=== PATIENT | male | born 2000 | race Caucasian/White ===

== ENCOUNTER 2024-10-28 07:21 | Inpatient (IN) | payer BC, MEDICAID ==
[~2024-10-28] VITALS: Ht 185.4 cm; Wt 81.4 kg
[2024-10-29 19:10] VITALS: BP 85/53; PULSE 56; RESP 20; TEMP 97.6; O2SAT 99
[2024-10-29] MEDS: LORazepam 1 MG tablet PO ONE (23:41)
[2024-10-29] MEDS: haloperidol 5mg tablet PO ONE (23:42)
[2024-10-30 07:33] VITALS: PULSE 88; RESP 16; TEMP 97.8
[2024-10-30 08:00] VITALS: RESP 16
[2024-10-30] MEDS: OLANZAPINE 5 MG TABLET PO SCH ×2 (09:32→21:10)
[2024-10-30] MEDS: divalproex sodium 500mg tablet.DR PO SCH (09:32)
[2024-10-30] MEDS: LORazepam 1 MG tablet PO ONE (15:44)
[2024-10-30] MEDS: haloperidol 5mg tablet PO ONE (15:44)
[2024-10-30] MEDS: diphenhydrAMINE 25mg capsule PO ONE (15:44)
[2024-10-30 19:00] VITALS: RESP 13
[2024-10-30 20:00] VITALS: BP 121/61; PULSE 75; RESP 13; TEMP 98.2; O2SAT 96
[2024-10-30] MEDS ORDERED: Melatonin 3mg tablet PO SCH (21:00)
[2024-10-30] MEDS: divalproex 250mg tablet, delayed-release PO SCH (21:10)
[2024-10-30] MEDS: Melatonin 3mg tablet PO SCH (21:10)
[2024-10-31 07:00] VITALS: RESP 16; O2SAT 100
[2024-10-31 08:00] VITALS: BP 97/55; PULSE 74; RESP 16; TEMP 97.3; O2SAT 100
[2024-10-31] MEDS: paliperidone palmitate inj 234 MG/1.5 ML SYRINGE IM ONE (15:26)
[2024-10-31 18:43] VITALS: RESP 16; O2SAT 100
[2024-10-31 20:00] VITALS: BP 128/72; PULSE 76; RESP 14; TEMP 98.4; O2SAT 97
[2024-10-31] MEDS: PALIPERIDONE 3 MG TAB.ER.24 PO SCH (20:15)
[2024-10-31] MEDS ORDERED: magnesium hydroxide 30ml (MOM) UD suspension PO PRN (22:45)
[2024-10-31] MEDS ORDERED: mag hydrox/Alum hydrox/simeth 30ml oral suspension PO PRN (22:45)
[2024-10-31] MEDS ORDERED: acetaminophen 325mg tablet PO PRN ×2 (22:45)
[2024-10-31] MEDS ORDERED: loperamide 2mg capsule PO PRN (22:45)
[2024-10-31] MEDS: traZODone 50mg tablet PO ONE (23:08)
[2024-11-01] MEDS: traZODone 150mg tablet PO ONE (00:35)
[2024-11-01] MEDS: quetiapine 100mg tablet PO ONE ×2 (01:45→20:25)
[2024-11-01] MEDS: LORazepam 1 MG tablet PO ONE (03:02)
[2024-11-01 07:30] VITALS: BP 112/54; PULSE 71; RESP 14; TEMP 97.7; O2SAT 97
[2024-11-01 19:15] VITALS: RESP 16; O2SAT 99
[2024-11-01 19:29] VITALS: BP 140/65; PULSE 70; RESP 20; TEMP 98.8; O2SAT 99
[2024-11-01] MEDS: Melatonin 3mg tablet PO ONE (20:25)
[2024-11-02 07:00] VITALS: RESP 16
[2024-11-02 08:00] VITALS: RESP 16
[2024-11-02 19:04] VITALS: RESP 16; O2SAT 98
[2024-11-02 19:18] VITALS: RESP 16
[2024-11-02] MEDS: diphenhydrAMINE 25mg capsule PO ONE (19:41)
[2024-11-02] MEDS: haloperidol 5mg tablet PO ONE (19:42)
[2024-11-02] MEDS: LORazepam 1 MG tablet PO ONE (19:42)
[2024-11-03 07:30] VITALS: BP 109/57; PULSE 68; RESP 12; TEMP 97.5; O2SAT 100
[2024-11-03] MEDS: LORazepam 1 MG tablet PO STA (11:00)
[2024-11-03] MEDS: haloperidol 5mg tablet PO STA (11:01)
[2024-11-03] MEDS: diphenhydrAMINE 25mg capsule PO STA (11:01)
[2024-11-03 18:33] VITALS: RESP 14; O2SAT 100
[2024-11-03 20:37] VITALS: PULSE 80; RESP 17; TEMP 98.8; O2SAT 98
[2024-11-04 07:30] VITALS: BP 110/62; PULSE 82; RESP 13; TEMP 97.3; O2SAT 96
[2024-11-04 19:00] VITALS: RESP 18; O2SAT 96
[2024-11-04 20:00] VITALS: BP 133/80; PULSE 91; RESP 18; TEMP 98; O2SAT 96
[2024-11-05 07:00] VITALS: RESP 14; O2SAT 95
[2024-11-05 08:31] VITALS: BP 108/68; PULSE 86; RESP 14; TEMP 97.5; O2SAT 95
[2024-11-05] MEDS: paliperidone palmitate 156 mg/ml inj.**IM only IM ONE (14:09)
[2024-11-05 19:00] VITALS: RESP 18; O2SAT 100
[2024-11-05 20:00] VITALS: BP 138/87; PULSE 71; RESP 18; TEMP 97.3; O2SAT 98
[2024-11-06 08:00] VITALS: RESP 16; O2SAT 98
[2024-11-06 08:01] VITALS: BP 115/66; PULSE 86; RESP 16; TEMP 98.1; O2SAT 98
[2024-11-06 19:00] VITALS: RESP 18; O2SAT 98
[2024-11-06 20:00] VITALS: BP 140/71; PULSE 88; RESP 18; TEMP 97; O2SAT 98
[2024-11-07 07:22] VITALS: BP 105/63; PULSE 86; RESP 18; TEMP 97.9; O2SAT 98
[2024-11-07 08:47] VITALS: RESP 18; O2SAT 98
[2024-11-07] MEDS ORDERED: paliperidone palmitate 156 mg/ml inj.**IM only IM ONE (14:00)
[2024-11-07 20:00] VITALS: BP 125/63; PULSE 92; RESP 16; TEMP 97.8; O2SAT 96
[2024-11-08 07:30] VITALS: BP 114/62; PULSE 98; RESP 16; TEMP 96.4; O2SAT 96; O2SAT 99
[2024-11-08 10:35] VITALS: BP 114/62; PULSE 98; RESP 16; TEMP 96.4; O2SAT 99
[2024-11-08 10:45] VITALS: RESP 16; O2SAT 99
[2024-11-08] MEDS ORDERED: MELA3TAB39 PO (14:35)
[2024-11-08] MEDS ORDERED: DIVA125C10 PO (14:35)
[2024-11-08 18:40] VITALS: RESP 16; O2SAT 99
[2024-11-08 20:00] VITALS: BP 105/59; PULSE 69; RESP 18; TEMP 97.2; O2SAT 97
[2024-11-09 07:30] VITALS: BP 110/60; PULSE 71; RESP 12; TEMP 97.4; O2SAT 97
[2024-11-09] MEDS: LORazepam 1 MG tablet PO STA (15:07)
[2024-11-09] MEDS: haloperidol 5mg tablet PO STA (15:07)
[2024-11-09] MEDS: diphenhydrAMINE 25mg capsule PO STA (15:08)
[2024-11-09 19:00] VITALS: RESP 18
[2024-11-09 20:00] VITALS: RESP 16; O2SAT 99
[2024-11-10 07:30] VITALS: BP 117/66; PULSE 70; RESP 14; TEMP 97; O2SAT 100
[2024-11-10 18:46] VITALS: RESP 16; O2SAT 99
[2024-11-10 19:35] VITALS: BP 105/50; PULSE 76; RESP 15; TEMP 98.1; O2SAT 98
[2024-11-11 07:30] VITALS: BP 116/68; PULSE 78; RESP 16; TEMP 97.5; O2SAT 97
[2024-11-11 19:00] VITALS: RESP 16; O2SAT 99
[2024-11-11 20:00] VITALS: BP 121/76; PULSE 90; RESP 16; TEMP 97.3; O2SAT 99
[2024-11-11] MEDS: hydrOXYzine 25 MG tablet PO PRN (20:32)
[2024-11-12 07:25] VITALS: BP 107/79; PULSE 88; RESP 20; TEMP 97.9; O2SAT 98
[2024-11-12 08:00] VITALS: RESP 20; O2SAT 98
[2024-11-12 19:00] VITALS: RESP 18; O2SAT 97
[2024-11-12 19:55] VITALS: BP 97/60; PULSE 74; RESP 18; TEMP 97.8; O2SAT 97
[2024-11-13 07:46] VITALS: BP 114/59; PULSE 60; RESP 14; TEMP 97.2; O2SAT 99
[2024-11-13 08:00] VITALS: RESP 14; O2SAT 99
== END 2024-11-13 10:28 | DRG 885 ==
LOC: UNDOADMIN 10-29 19:04 → ADULT MH 10-29 19:04 → EDBD 10-29 19:04 → ADULT MH 10-29 19:08
PROVIDERS: ADMIT Psychiatry & Neurology Psychiatry; ATTEND Psychiatry & Neurology Psychiatry
DX: F25.0 Schizoaffective disorder, bipolar type (principal); Z79.899 Other long term (current) drug therapy; Z56.0 Unemployment, unspecified
CPT/HCPCS: 36415; 80164; 87081; J2426; Q0163; Q0177